=== PATIENT | female | born 1940 | race Caucasian/White ===

== ENCOUNTER 2022-01-04 12:55 | Outpatient (CLI) | payer MEDICARE, BC | END 2022-01-04 12:56 | disposition home or self-care (01) | LOC: BICMAMMO 12:55 | PROVIDERS: ATTEND Internal Medicine | DX: Z12.31 Encounter for screening mammogram for malignant neoplasm of breast (principal); R92.1 Mammographic calcification found on diagnostic imaging of breast; Z91.89 Other specified personal risk factors, not elsewhere classified | CPT/HCPCS: 77063; 77067 ==

== ENCOUNTER 2023-07-09 09:29 | Outpatient (CLI) | payer MEDICARE | END 2023-07-09 09:30 | disposition home or self-care (01) | LOC: BICMAMMO 09:29 | PROVIDERS: ATTEND Internal Medicine | DX: Z12.31 Encounter for screening mammogram for malignant neoplasm of breast (principal); Z91.89 Other specified personal risk factors, not elsewhere classified | CPT/HCPCS: 77063; 77067 ==

== ENCOUNTER 2024-04-09 08:21 | Outpatient (CLI) | payer MEDICARE ==
[2024-04-09] MEDS ORDERED: Iopamidol 370 76% 100 ML VIAL ONE (14:14)
== END 2024-04-09 08:22 | disposition home or self-care (01) ==
LOC: BICCT 08:21
PROVIDERS: ATTEND Urology
DX: R31.29 Other microscopic hematuria (principal); K43.9 Ventral hernia without obstruction or gangrene; N32.89 Other specified disorders of bladder
CPT/HCPCS: 74178; 82565; Q9967

== ENCOUNTER 2025-01-27 10:08 | Outpatient (CLI) | payer MEDICARE ==
[2025-01-27 11:09] LABS: #Basophils 0.03 10x3/uL (0.0-0.2); #Eosinophils 0.25 10x3/uL (0.0-0.7); #Monocytes 0.47 10x3/uL (0.11-0.59); #Neutrophils 4.85 10x3/uL (1.40-6.50); %Basophils 0.4 % (0.0-1.0); %Eosinophils 3.6 % (0.0-10.0); %Lymphocytes 18.4 % (21.0-51.0); %Monocytes 6.8 % (0.0-10.0); %Neutrophils 70.4 % (42.0-75.0); Hematocrit 43.2 % (36.0-47.0); Hemoglobin 13.9 g/dL (12.0-16.0); Mean Corpuscular Hemoglobin 31.1 pg (27.0-31.0); Mean Corpuscular Volume 96.6 fL (78.0-98.0); Platelet Count 247 10x3/uL (130-400); Red Blood Cell (RBC) Count 4.47 mill/uL (4.20-5.40); White Blood Cell (WBC) Count 6.90 10x3/uL (4.8-10.8)
[2025-01-27 11:23] LABS: Anion Gap 12 mmol/L (10-20); BUN (Urea Nitrogen) 27 mg/dL (9.8-20.1); Calc. Creatinine Clearance 0 mL/min (70-130); Calcium 8.9 mg/dL (7.8-10.44); Carbon Dioxide 26 mmol/L (23-31); Chloride 108 mmol/L (98-107); Glucose 95 mg/dL (83-110); INR-International Normal Ratio 1.1; PTT 27.4 sec (22.9-36.1); Potassium 4.2 mmol/L (3.5-5.1); Prothrombin Time 13.9 sec (12.0-14.7); Sodium 142 mmol/L (136-145)
[2025-01-27 13:16] LABS: Bacteria/HPF None Seen HPF (None Seen); Glucose, Urine (Dipstick) Normal (Negative); Leukocyte 500 Leu/uL (Negative); Protein, Urine (Dipstick) 50 mg/dL (Neg-Trace); RBC/HPF Greater than 50 HPF (0-3); Specific Gravity, Urine 1.020 (1.002-1.036); WBC/HPF Greater than 50 HPF (0-3); Yeast-Budding 2+ HPF (None Seen)
== END 2025-01-27 10:09 | disposition home or self-care (01) ==
LOC: LABBT 10:08
PROVIDERS: ATTEND Urology
DX: Z01.818 Encounter for other preprocedural examination (principal); N32.81 Overactive bladder; N30.90 Cystitis, unspecified without hematuria; N39.41 Urge incontinence; R91.1 Solitary pulmonary nodule; N81.6 Rectocele; N95.2 Postmenopausal atrophic vaginitis; R35.1 Nocturia; R31.0 Gross hematuria
CPT/HCPCS: 80048; 81001; 85025; 85610; 85730; 87086; 93005; 93010

== ENCOUNTER 2025-02-11 07:30 | Day surgery (SDC) | payer MEDICARE ==
[2025-01-27 10:28] VITALS: BMI 24.0
[~2025-02-11 07:30] MED LIST: cefTRIAXone\\ROCEPHIN 1 GM in Sodium Chloride 0.9% 100 ML IVPB SCH
[2025-02-11] MEDS ORDERED: cefTRIAXone (ROCEPHIN) 1 GM VIAL ONE (09:43)
[2025-02-11] MEDS ORDERED: fentaNYL PF 100 MCG/2 ML SYRINGE ONE (10:14)
[2025-02-11] MEDS ORDERED: PROPOFOL 20 ML ONE (10:14)
[2025-02-11] MEDS ORDERED: Lidocaine 1% PF 5 ML VIAL ONE (10:14)
[2025-02-11] MEDS ORDERED: Botulinum Toxin 200 UNITS VIAL FS SCH (10:30)
== END 2025-02-11 13:58 | disposition home or self-care (01) ==
LOC: SDC 07:30
PROVIDERS: ATTEND Urology
PROC: 0T5B8ZZ Destruction of Bladder, Via Natural or Artificial Opening Endoscopic (ICD-10-PCS; principal; 2025-02-11)
PROC: 3E0K8GC Introduction of Other Therapeutic Substance into Genitourinary Tract, Via Natural or Artificial Opening Endoscopic (ICD-10-PCS; 2025-02-11)
DX: N32.81 Overactive bladder (principal); N32.9 Bladder disorder, unspecified; Z98.51 Tubal ligation status; Z88.2 Allergy status to sulfonamides; Z88.6 Allergy status to analgesic agent
CPT/HCPCS: 52240; 52287; A4333; J0585; J0696; J2704 ×2; J3010